=== PATIENT | male | born 1995 | race Two or more races ===

== ENCOUNTER 2016-08-25 18:01 | Emergency (ER) | payer MEDICAID, OTHER ==
[~2016-08-25] VITALS: Ht 162.6 cm; Wt 81.6 kg
[2016-08-25 20:13] VITALS: BP 120/81
== END 2016-08-25 20:13 | disposition home or self-care (01) ==
LOC: ER 18:14
DX: S01.512A Laceration without foreign body of oral cavity, initial encounter (principal); X58.XXXA Exposure to other specified factors, initial encounter; Y93.89 Activity, other specified; Y99.8 Other external cause status; Y92.89 Other specified places as the place of occurrence of the external cause